=== PATIENT | male | born 1975 | race Two or more races ===

== ENCOUNTER 2022-06-01 08:15 | Emergency (ER) | payer OTHER ==
[~2022-06-01] VITALS: Ht 170.2 cm; Wt 85.7 kg
[2022-06-01] MEDS ORDERED: RELAFEN DS1000 MG PO (10:00)
[2022-06-01] MEDS ORDERED: NORFLEX100MG PO (10:00)
== END 2022-06-01 10:24 | disposition home or self-care (01) ==
LOC: ER 08:15
DX: S20.211A Contusion of right front wall of thorax, initial encounter (principal); X58.XXXA Exposure to other specified factors, initial encounter; Y93.61 Activity, american tackle football; Y92.9 Unspecified place or not applicable; Y99.9 Unspecified external cause status